=== PATIENT | male | born 1980 | race Caucasian/White ===

== ENCOUNTER 2019-04-08 12:37 | Emergency (ER) | payer BC, SELFPAY ==
[2019-04-08] MEDS ORDERED: Ketorolac Tromethamine 30 MG/ML VIAL ONE (13:13)
[2019-04-08] MEDS ORDERED: Promethazine HCl 25 MG/ML VIAL ONE (13:14)
[2019-04-08] MEDS ORDERED: Ondansetron PF 4 MG/2 ML Vial ONE (13:14)
[2019-04-08 13:47] LABS: Bilirubin Negative (Negative); Blood, Urine Negative (Negative); Clarity CLEAR (Clear); Glucose, Urine (Dipstick) Negative (Negative); Leukocyte Negative (Negative); Nitrite Negative (Negative); Protein, Urine (Dipstick) Negative (Neg-Trace); Specific Gravity, Urine 1.017 (1.002-1.036); pH, Urine 8.5 (5.0-9.0)
[2019-04-08 13:55] LABS: #Lymphocytes 1.6 thou/uL (1.20-3.40); #Monocytes 0.5 thou/uL (0.11-0.59); #Neutrophils 8.2 thou/uL (1.40-6.50); %Basophils 0.4 % (0.0-1.0); %Eosinophils 0.4 % (0.0-10.0); %Lymphocytes 15.4 % (21.0-51.0); %Monocytes 4.5 % (0.0-10.0); %Neutrophils 79.4 % (42.0-75.0); Mean Corpuscular HGB CONC 34.9 g/dL (32.0-36.0); Mean Corpuscular Hemoglobin 32.3 pg (27.0-31.0); Mean Corpuscular Volume 92.6 fL (78.0-98.0); Mean Platelet Volume 7.7 fL (7.4-10.4); Platelet Count 245 thou/uL (130-400); RBC Distribution Width 11.6 % (11.5-14.5); Red Blood Cell (RBC) Count 4.32 mill/uL (4.70-6.10); White Blood Cell (WBC) Count 10.3 thou/uL (4.8-10.8)
[2019-04-08 14:07] LABS: ALT (SGPT) 13 U/L (8-55); AST (SGOT) 16 U/L (5-34); Albumin 4.2 g/dL (3.5-5.0); Alkaline Phosphatase 59 U/L (40-150); Anion Gap 15 mmol/L (10-20); BUN (Urea Nitrogen) 18 mg/dL (8.9-20.6); Bilirubin, Total 0.6 mg/dL (0.2-1.2); Calc. Creatinine Clearance 0 mL/min (70-130); Calcium 9.5 mg/dL (7.8-10.44); Carbon Dioxide 21 mmol/L (22-29); Chloride 107 mmol/L (98-107); Estimated GFR-MDRD 65; Globulin 2.6 g/dL (2.4-3.5); Glucose 110 mg/dL (70-105); Potassium 3.7 mmol/L (3.5-5.1); Protein, Total 6.8 g/dL (6.0-8.3); Sodium 139 mmol/L (136-145)
--- NOTE | 2019-04-08 14:21 | CT ---
CT STONE PROTOCOL: HISTORY: Left-sided abdominal pain radiating to the left testicle FINDINGS: Absence of oral and IV contrast reduces the sensitivity of the exam particularly for the evaluation o f solid organs and bowel. There are mild dependent changes at the lung bases. A small hiatal hernia is present. Bilateral gynec omastia is present. No free air or free fluid is seen in the abdomen and pelvis. No calcific gallstones are seen. No calculus seen in the kidneys right ureter or the urinary bladder. There is a 3 mm calculus at the left UVJ with associated left hydroureteronephrosis. There is suggestion of right parapelvic cyst. No aneurysmal dilatation of the abdominal aorta is seen. There are mild degenerative changes in the s pine. IMPRESSION: 1. A 3 mm left UVJ calculus with ipsilateral hydroureteronephrosis. 2. Small hiatal hernia 3. Gynecomastia 4. Probable right parapelvic cyst. Renal ultrasound performed.
[2019-04-08] MEDS ORDERED: HYDROcodone/Acetaminophen 5/325 mg Tablet ONE (14:50)
== END 2019-04-08 15:00 | disposition home or self-care (01) ==
LOC: ERS 12:37
DX: N20.1 Calculus of ureter (principal)
CPT/HCPCS: 36415; 74176; 80053; 81003; 85025; 96365; 96366; 96375; J1885; J2405; J2550

== ENCOUNTER 2025-07-15 11:10 | Outpatient (CLI) | payer BC | END 2025-07-15 11:11 | disposition home or self-care (01) | LOC: ULT 11:10 | PROVIDERS: ATTEND Nurse Practitioner Family | DX: N50.811 Right testicular pain (principal); N50.812 Left testicular pain; N50.89 Other specified disorders of the male genital organs; R93.89 Abnormal findings on diagnostic imaging of other specified body structures; I86.1 Scrotal varices | CPT/HCPCS: 76870; 93976 ==